=== PATIENT | female | born 1980 | race Caucasian/White ===

== ENCOUNTER 2018-04-13 11:10 | Emergency (ER) | payer SELFPAY ==
[~2018-04-13] VITALS: Ht 152.4 cm; Wt 79.4 kg
[2018-04-13] MEDS ORDERED: HYDROcodone/APAP 5/325MG 1 TAB TABLET PO ONE (11:45)
--- NOTE | 2018-04-13 11:45 | PHYS DOC ---
Past History Past Medical History: Anxiety, Other Past Surgical History: Other Alcohol Use: None Drug Use: None Adult General Chief Complaint Chief Complaint: Neck Pain HPI HPI The patient is a pleasant 37-year-old female who presents for evaluation of neck pain. She states that she and her were roughhousing and she went to pull him from his collar region of his T-shirt when he was running in front of her and then he lost his balance and fell into her. This caused her neck to strain backwards. She has some midline cervical tenderness. She is alert and oriented 4, calm, and appears to be in no distress. She is requesting a work note she denies headache, fevers or chills, focal weakness or focal numbness, vision changes, or loss of consciousness. Review of Systems Review of Systems Constitutional: Denies fever or chills [] Eyes: Denies change in visual acuity, redness, or eye pain [] HENT: Denies nasal congestion or sore throat [] Respiratory: Denies cough or shortness of breath [] Cardiovascular: No additional information not addressed in HPI [] GI: Denies abdominal pain, nausea, vomiting, bloody stools or diarrhea [] : Denies dysuria or hematuria [] Musculoskeletal: Denies back pain or joint pain [] +neck pain Integument: Denies rash or skin lesions [] Neurologic: Denies headache, focal weakness or sensory changes [] Endocrine: Denies polyuria or polydipsia [] All other systems were reviewed and found to be within normal limits, except as documented in this note. Current Medications Current Medications Current Medications Medications (Trade) Dose Ordered Sig/[facility] Start Time Stop Time Status Last Admin Dose Admin Acetaminophen/ Hydrocodone Bitart (Lortab 5/325) 1 tab 1X ONCE 04/13/18 11:45 04/13/18 11:46 Allergies Allergies Allergies Coded Allergies Type Severity Reaction Last Updated Verified No Known Drug Allergies 09/20/14 No Physical Exam Physical Exam Constitutional: Well developed, well nourished, no acute distress, non-toxic appearance. [] HENT: Normocephalic, atraumatic, bilateral external ears normal, oropharynx moist, no oral exudates, nose normal. [] Eyes: PERRLA, EOMI, conjunctiva normal, no discharge. [] Neck: Normal range of motion, no tenderness, supple, no stridor. [] +midline cervical ttp C2-5, no step-off/deformity Cardiovascular:Heart rate regular rhythm, no murmur [] Lungs & Thorax: Bilateral breath sounds clear to auscultation [] Abdomen: Bowel sounds normal, soft, no tenderness, no masses, no pulsatile masses. [] Skin: Warm, dry, no erythema, no rash. [] Back: No tenderness, no CVA tenderness. [] Extremities: No tenderness, no cyanosis, no clubbing, ROM intact, no edema. [] Neurologic: Alert and oriented X 3, normal motor function, normal sensory function, no focal deficits noted. [] Psychologic: Affect normal, judgement normal, mood normal. [] Current Patient Data Vital Signs Vital Signs Date Time Temp Pulse Resp B/P (MAP) Pulse Ox O2 Delivery O2 Flow Rate FiO2 04/13/18 11:22 97.9 18 96 Room Air EKG EKG [] Radiology/Procedures Radiology/[place] [address] IMAGING REPORT Signed PATIENT: CURRY PAVON ACCOUNT: [id number] : 1980 LOCATION: ER AGE: 37 SEX: F EXAM STATUS: REG ER ORD. PHYSICIAN: ARELI NOVAK DO REASON: neck pain PROCEDURE: CERVICAL SPINE 2-3V INDICATION: Neck pain. Injury today. TECHNIQUE: Cervical spine series contains 4 images. No comparison is available. FINDINGS: Lateral film includes through C7-T1. There is no fracture or dislocation. Prevertebral soft tissues are within normal limits. There is endplate spurring from C4-C5 through C6-C7. IMPRESSION: Negative for fracture or dislocation. Mild endplate spurring from C4-C5 through C6-C7. Electronically signed by: Ady Brooks MD (04/13/2018 1:30 PM) [id number] DICTATED AND SIGNED BY: ADY BROOKS MD DATE: 04/13/18 9341 CC: ARELI NOVAK DO; KAI HICKS ~ Course & Med Decision Making Course & Med Decision Making Pertinent Labs and Imaging studies reviewed. (See chart for details) @1340 - patient updated on x-ray results. She has no additional complaints is asking to go home. She is also asking for a work note which will be provided. She is stable for discharge at this time. Advised patient to follow up with her PCP in 2-3 days. Sergei Disclaimer Sergei Disclaimer This electronic medical record was generated, in whole or in part, using a voice recognition dictation system. Departure Departure: Impression: Primary Impression: Cervical strain, acute Additional Impression: Neck pain Disposition: HOME, SELF-CARE Condition: STABLE Referrals: KAI HICKS (PCP) Patient Instructions: Cervical Sprain, Soft Tissue Injury of the Neck Additional Instructions: Take the medicine as prescribed. Return to the ER for new or worsening symptoms. Follow-up with your doctor in the next 2-3 days. Scripts Hydrocodone Bit/Acetaminophen (NORCO 5-325 TABLET) 1 Each Tablet 1 TAB PO TID PRN for PAIN, #12 TAB Prov: ARELI NOVAK DO 04/13/18 Cyclobenzaprine Hcl (CYCLOBENZAPRINE HCL) 10 Mg Tablet 1 TAB PO TID PRN for MUSCLE SPASMS, #20 TAB Prov: ARELI NOVAK DO 04/13/18 Problem Qualifiers ARELI NOVAK DO Apr 13, 2018 11:45
[2018-04-13 13:10] VITALS: BP 119/78
--- NOTE | 2018-04-13 13:33 | RAD ---
INDICATION: Neck pain. Injury today. TECHNIQUE: Cervical spine series contains 4 images. No comparison is available. FINDINGS: Lateral film includes through C7-T1. There is no fracture or dislocation. Prevertebral soft tissues are within normal limits. There is endplate spurring from C4-C5 through C6-C7. IMPRESSION: Negative for fracture or dislocation. Mild endplate spurring from C4-C5 through C6-C7. Electronically signed by: Ady Brooks MD (04/13/2018 1:30 PM) [id number]
[2018-04-13] MEDS ORDERED: CYCL-331 PO (13:48)
[2018-04-13] MEDS ORDERED: HYDR-971 PO (13:48)
== END 2018-04-13 13:55 | disposition home or self-care (01) ==
LOC: ER 11:10
DX: S16.1XXA Strain of muscle, fascia and tendon at neck level, initial encounter (principal); W01.0XXA Fall on same level from slipping, tripping and stumbling without subsequent striking against object, initial encounter; Y93.83 Activity, rough housing and horseplay; Y99.8 Other external cause status; Y92.89 Other specified places as the place of occurrence of the external cause
CPT/HCPCS: 72040; 99284